=== PATIENT | male | born 1980 | race Caucasian/White ===

== ENCOUNTER 2020-06-05 14:15 | Outpatient (RCR) | payer OTHER, SELFPAY ==
[2020-06-05] MEDS: COVID-19 VACC, MRNA(PFIZER)/PF 30 MCG/0.3 ML SYRINGE IM (11:05)
[2020-06-26] MEDS: COVID-19 VACC, MRNA(PFIZER)/PF 30 MCG/0.3 ML SYRINGE IM (10:54)
== END 2020-06-05 23:59 ==
LOC: IMMUN 14:15
PROVIDERS: Visit Provider Family Medicine
DX: Z23 Encounter for immunization (principal)
CPT/HCPCS: 0001A; 0002A; 91300

== ENCOUNTER 2021-04-08 10:00 | Outpatient (CLI) | payer OTHER, SELFPAY ==
[2021-04-12 09:21] LABS: Semen Analysis Post Vas ABSENT
== END 2021-04-08 23:59 | disposition home or self-care (01) ==
PROVIDERS: Visit Provider Urology
DX: Z30.8 Encounter for other contraceptive management (principal)
CPT/HCPCS: 89321